=== PATIENT | male | born 1940 | race African-American/Black ===

== ENCOUNTER 2025-07-26 20:08 | Inpatient (IN) | payer MEDICARE, OTHER ==
[2025-07-27 00:06] LABS: #Basophils Less than 0.03 10x3/uL (0.0-0.2); #Eosinophils 0.15 10x3/uL (0.0-0.7); #Monocytes 0.83 10x3/uL (0.11-0.59); #Neutrophils 3.69 10x3/uL (1.40-6.50); %Basophils 0.3 % (0.0-1.0); %Eosinophils 2.6 % (0.0-10.0); %Lymphocytes 18.9 % (21.0-51.0); %Monocytes 14.3 % (0.0-10.0); %Neutrophils 63.6 % (42.0-75.0); Hematocrit 31.3 % (42.0-52.0); Hemoglobin 9.7 g/dL (14.0-18.0); Mean Corpuscular Hemoglobin 32.0 pg (27.0-31.0); Mean Corpuscular Volume 103.3 fL (78.0-98.0); Platelet Count 156 10x3/uL (130-400); Red Blood Cell (RBC) Count 3.03 mill/uL (4.70-6.10); White Blood Cell (WBC) Count 5.81 10x3/uL (4.8-10.8)
[2025-07-27 00:26] LABS: ALT (SGPT) Less than 7 U/L (Less than 45); AST (SGOT) 19 U/L (11-34); Albumin 2.4 g/dL (3.1-4.5); Alkaline Phosphatase 92 U/L (40-110); Anion Gap 17 mmol/L (10-20); BUN (Urea Nitrogen) 8 mg/dL (8.4-25.7); Bilirubin, Total 0.7 mg/dL (0.3-1.2); Calc. Creatinine Clearance 0 mL/min (70-130); Calcium 8.8 mg/dL (7.8-10.44); Carbon Dioxide 21 mmol/L (23-31); Chloride 105 mmol/L (98-107); Globulin 3.6 g/dL (2.4-3.5); Glucose 77 mg/dL (83-110); Potassium 4.0 mmol/L (3.5-5.1); Sodium 139 mmol/L (136-145)
[2025-07-27] MEDS ORDERED: cefTRIAXone (ROCEPHIN) 1 GM VIAL ONE (00:53)
[2025-07-27] MEDS ORDERED: Furosemide 40 MG (4 mL) VIAL ONE (01:40)
[2025-07-27] MEDS ORDERED: Ondansetron PF 4 MG/2 ML Vial IVP PRN (05:17)
[2025-07-27 05:25] VITALS: BMI 23.6
[2025-07-27] MEDS ORDERED: Enoxaparin 40 MG (0.4 mL) SYRINGE ONE (07:59)
[2025-07-27] MEDS: Enoxaparin 40 MG (0.4 mL) SYRINGE SC SCH (08:09)
[2025-07-27] MEDS ORDERED: Losartan 25 MG TAB ONE (08:42)
[2025-07-27] MEDS ORDERED: Pantoprazole 40 MG DR.TAB ONE (08:42)
[2025-07-27] MEDS: Pantoprazole 40 MG DR.TAB PO SCH (08:53)
[2025-07-27] MEDS: Losartan 25 MG TAB PO SCH (08:53)
[2025-07-27] MEDS ORDERED: Furosemide 20 MG (2 mL) VIAL ONE (13:32)
[2025-07-27] MEDS: Furosemide 20 MG (2 mL) VIAL SLOW IVP SCH ×2 (13:36→20:05)
[2025-07-28] MEDS: Acetaminophen 325 MG TAB PO PRN (02:28)
[2025-07-28 05:28] LABS: Iron 9 ug/dL (65-175); Iron Binding Capacity, Total 85 mcg/dL (261-462)
[2025-07-28 05:29] LABS: Anion Gap 12 mmol/L (10-20); BUN (Urea Nitrogen) 8 mg/dL (8.4-25.7); Calc. Creatinine Clearance 42 mL/min (70-130); Calcium 8.1 mg/dL (7.8-10.44); Carbon Dioxide 30 mmol/L (23-31); Chloride 101 mmol/L (98-107); Glucose 70 mg/dL (83-110); Iron 12 ug/dL (65-175); Iron Binding Capacity, Total 81 mcg/dL (261-462); Potassium 3.1 mmol/L (3.5-5.1); Sodium 140 mmol/L (136-145)
[2025-07-28] MEDS: Furosemide 40 MG (4 mL) VIAL SLOW IVP SCH (05:42)
[2025-07-28 06:07] LABS: Anisocytosis SLIGHT = 6-15 cells HPF (0-5); Macrocytosis SLIGHT = 6-15 cells HPF (0-5); Platelet Adequacy Comment Platelets Decreased
[2025-07-28 06:09] LABS: #Basophils Less than 0.03 10x3/uL (0.0-0.2); #Eosinophils 0.23 10x3/uL (0.0-0.7); #Monocytes 0.54 10x3/uL (0.11-0.59); #Neutrophils 2.26 10x3/uL (1.40-6.50); %Basophils 0.3 % (0.0-1.0); %Eosinophils 6.2 % (0.0-10.0); %Lymphocytes 18.2 % (21.0-51.0); %Monocytes 14.5 % (0.0-10.0); %Neutrophils 60.5 % (42.0-75.0); Hematocrit 25.1 % (42.0-52.0); Hemoglobin 7.9 g/dL (14.0-18.0); Mean Corpuscular Hemoglobin 32.4 pg (27.0-31.0); Mean Corpuscular Volume 102.9 fL (78.0-98.0); Platelet Count 127 10x3/uL (130-400); Red Blood Cell (RBC) Count 2.44 mill/uL (4.70-6.10); White Blood Cell (WBC) Count 3.73 10x3/uL (4.8-10.8)
[2025-07-28 06:51] LABS: Vitamin B12 768.0 pg/mL (211-911)
[2025-07-28 07:25] LABS: Ferritin 1335.87 ng/mL (22-322)
[2025-07-28 13:04] LABS: Hematocrit 29.1 % (42.0-52.0); Hemoglobin 9.1 g/dL (14.0-18.0)
[2025-07-29 05:02] LABS: #Basophils Less than 0.03 10x3/uL (0.0-0.2); #Eosinophils 0.17 10x3/uL (0.0-0.7); #Monocytes 0.52 10x3/uL (0.11-0.59); #Neutrophils 1.55 10x3/uL (1.40-6.50); %Basophils 0.5 % (0.0-1.0); %Eosinophils 4.6 % (0.0-10.0); %Lymphocytes 39.1 % (21.0-51.0); %Monocytes 13.9 % (0.0-10.0); %Neutrophils 41.6 % (42.0-75.0); Hematocrit 28.6 % (42.0-52.0); Hemoglobin 9.1 g/dL (14.0-18.0); Mean Corpuscular Hemoglobin 32.2 pg (27.0-31.0); Mean Corpuscular Volume 101.1 fL (78.0-98.0); Platelet Count 161 10x3/uL (130-400); Red Blood Cell (RBC) Count 2.83 mill/uL (4.70-6.10); White Blood Cell (WBC) Count 3.73 10x3/uL (4.8-10.8)
[2025-07-29 05:17] LABS: Anion Gap 13 mmol/L (10-20); BUN (Urea Nitrogen) 8 mg/dL (8.4-25.7); Calc. Creatinine Clearance 35 mL/min (70-130); Calcium 8.3 mg/dL (7.8-10.44); Carbon Dioxide 31 mmol/L (23-31); Chloride 101 mmol/L (98-107); Glucose 65 mg/dL (83-110); Potassium 4.0 mmol/L (3.5-5.1); Sodium 141 mmol/L (136-145)
[2025-07-29] MEDS: Ferrous Sulfate 325 MG TAB PO SCH (08:00)
[2025-07-29] MEDS ORDERED: Lidocaine 1% (PF) 30 ML VIAL ONE (09:00)
[2025-07-29] MEDS ORDERED: Iopamidol 370 76% 100 ML VIAL ONE (12:52)
[2025-07-29] MEDS: PNEUMOC 20-VAL CONJ-DIP CRM/PF 0.5 ML SYRINGE IM ONE (21:40)
[2025-07-30 04:56] LABS: #Basophils Less than 0.03 10x3/uL (0.0-0.2); #Eosinophils 0.13 10x3/uL (0.0-0.7); #Monocytes 0.58 10x3/uL (0.11-0.59); #Neutrophils 1.89 10x3/uL (1.40-6.50); %Basophils 0.5 % (0.0-1.0); %Eosinophils 3.2 % (0.0-10.0); %Lymphocytes 35.0 % (21.0-51.0); %Monocytes 14.4 % (0.0-10.0); %Neutrophils 46.9 % (42.0-75.0); Hematocrit 29.2 % (42.0-52.0); Hemoglobin 9.3 g/dL (14.0-18.0); Mean Corpuscular Hemoglobin 32.3 pg (27.0-31.0); Mean Corpuscular Volume 101.4 fL (78.0-98.0); Platelet Count 163 10x3/uL (130-400); Red Blood Cell (RBC) Count 2.88 mill/uL (4.70-6.10); White Blood Cell (WBC) Count 4.03 10x3/uL (4.8-10.8)
[2025-07-30 05:12] LABS: Anion Gap 15 mmol/L (10-20); BUN (Urea Nitrogen) 11 mg/dL (8.4-25.7); Calc. Creatinine Clearance 33 mL/min (70-130); Calcium 8.7 mg/dL (7.8-10.44); Carbon Dioxide 32 mmol/L (23-31); Chloride 99 mmol/L (98-107); Glucose 65 mg/dL (83-110); Potassium 3.7 mmol/L (3.5-5.1); Sodium 142 mmol/L (136-145)
[2025-07-30 15:59] VITALS: TEMP 98.2
[2025-07-30 16:00] VITALS: BP 96/48
== END 2025-07-30 18:24 | disposition home or self-care (01) | DRG 291 ==
LOC: ERS 20:08 → ERHOLD 07-27 04:36 → 2NO 07-27 16:17
PROVIDERS: ADMIT Internal Medicine; ATTEND Hospitalist
PROC: 06H03DZ Insertion of Intraluminal Device into Inferior Vena Cava, Percutaneous Approach (ICD-10-PCS; principal; 2025-07-29)
PROC: 3E03329 Introduction of Other Anti-infective into Peripheral Vein, Percutaneous Approach (ICD-10-PCS; 2025-07-30)
DX: I13.0 Hypertensive heart and chronic kidney disease with heart failure and stage 1 through stage 4 chronic kidney disease, or unspecified chronic kidney disease (principal); I50.23 Acute on chronic systolic (congestive) heart failure; I82.401 Acute embolism and thrombosis of unspecified deep veins of right lower extremity; N17.9 Acute kidney failure, unspecified; E78.5 Hyperlipidemia, unspecified; N18.30 Chronic kidney disease, stage 3 unspecified; I25.10 Atherosclerotic heart disease of native coronary artery without angina pectoris; K21.9 Gastro-esophageal reflux disease without esophagitis; Z98.890 Other specified postprocedural states; Z95.1 Presence of aortocoronary bypass graft; Z72.0 Tobacco use; N18.9 Chronic kidney disease, unspecified; D64.9 Anemia, unspecified; E03.9 Hypothyroidism, unspecified; E87.6 Hypokalemia; E61.1 Iron deficiency; Z79.899 Other long term (current) drug therapy; Z79.890 Hormone replacement therapy
CPT/HCPCS: 36415; 37191; 71045; 74230; 80048; 80053; 82274; 82607; 82728; 83540; 83550; 83605; 83880; 84145; 84484; 85025; 87070; 87205; 93005; 93306; 93970; 96365; 96375; C1769; C1880; C1894; J0696; J1650; J1940; Q9967

== ENCOUNTER 2025-09-26 10:02 | Outpatient (CLI) | payer OTHER | END 2025-09-26 10:03 | disposition home or self-care (01) | LOC: RAD 10:02 | PROVIDERS: ATTEND Family Medicine | DX: J69.0 Pneumonitis due to inhalation of food and vomit (principal); K22.5 Diverticulum of esophagus, acquired | CPT/HCPCS: 74230 ==